=== PATIENT | female | born 1995 | race Caucasian/White ===

== ENCOUNTER → 2018-08-23 | Outpatient (CLI) | payer OTHER ==
--- NOTE | 2018-08-23 16:55 | KCIC ---
PA and lateral chest radiograph. History: Preemployment tuberculosis screening. Comparison: None. Findings: Cardiomediastinal silhouette is within normal limits for size. Bilateral lung lane appear clear without evidence of infiltrate, effusion, or pneumothorax. No cavitary lesions are identified. Impression: 1. No acute cardiopulmonary process. No evidence of active tuberculosis infection. Electronically signed by: Jerrod Kaur MD (08/23/2018 4:51 PM) [place] [id number]
== END | disposition home or self-care (01) ==
LOC: KCIC 13:34
PROVIDERS: ATTEND Family Medicine
DX: Z11.1 Encounter for screening for respiratory tuberculosis (principal)
CPT/HCPCS: 71046